=== PATIENT | female | born 1970 | race Caucasian/White ===

== ENCOUNTER 2016-08-17 07:34 | Emergency (ER) | payer OTHER ==
--- NOTE | ~2016-08-17 | EKG ---
PATIENT: ELLIE TSAI UNIT #: [id number] Ventricular Rate: 102 BPM Atrial Rate: 102 BPM P-R Interval: 170 ms QRS Duration: 72 ms Q-T Interval: 334 ms QTC Calculation(Bezet): 435 ms P Gay: 74 degrees Calculated R Gay: 99 degrees Calculated T Gay: 59 degrees Diagnosis Line: Sinus tachycardia Diagnosis Line: Rightward axis Diagnosis Line: Borderline ECG Diagnosis Line: When compared with ECG of 22-MAY-2015 22:20, Diagnosis Line: Questionable change in initial forces of Anterior Diagnosis Line: leads Diagnosis Line: Confirmed by GEE BARCENAS MD ([id number]) on Diagnosis Line: 08/28/2016 7:13:32 AM INTERPRETING MD: GURWINDER
--- NOTE | ~2016-08-17 | CR72 ---
[facility] RADIOLOGY TEXT RESULTS PATIENT: ELLIE TSAI LOCATION: SED : 70 UNIT #: [id number] AGE: [address]: Cali Wright MD SEX: F ORDER DR: [id number] [place] [id number] E MR#: [id number] Acc #: [id number] NAME: ELLIE TSAI : 1970 SEX: F STUDY DATE/TIME: 08/17/2016 8:34 UNIT: SED ROOM: STUDY DESCRIPTION: CR Chest Single View Portable Attending Physician: Cali Wright M.D. Ordering Physician: Cali Wright M.D. Primary Care Physician: Pierre Purvis M.D. MEDICAL IMAGING REPORT This report is preliminary unless electronic signature is present. EXAM Single view of the chest dated 08/17/2016 at 0834 hours. COMPARISON Single view chest dated 06/12/[address] chest without contrast dated 06/13/2016. HISTORY Chest tightness, wheezing, and congestion for the last 2 days. History of VT, coronary artery disease, COPD. FINDINGS Single view of the chest was obtained. A single AP portable view of the chest shows both lungs to be clear. The heart is normal in size. The mediastinal contour is normal. No significant bone abnormalities are seen. IMPRESSION Normal portable chest. Dictated by... Marialuisa Phelps M.D. THIS IS AN ELECTRONICALLY VERIFIED REPORT Marialuisa Phelps M.D. at 08/18/2016 1:52 PM CPR/tmw TD: 08/17/2016 09:24 JOB #: [id number] [facility] RADIOLOGY TEXT RESULTS PATIENT: ELLIE TSAI LOCATION: SED : 70 UNIT #: [id number] AGE: [address]: Cali Wright MD SEX: F ORDER DR: MEDICAL IMAGING REPORT Page 1 of 1
[~2016-08-17 07:34] MED LIST: ALBUTEROL0.83 MG/ML IH; ALBUTEROL17 GM INH; ALPRAZOLAM PO; AMBIEN10 MG PO; ASPIRIN ENTERI325 M1 PO; ASPIRIN PO; ASPIRIN325 M1; ASPIRIN81 MG PO; BACTRIM DS TABL1 TA1; BACTROBAN22 GM TP; BAYER CHEWABLE81 MG PO; BENZONATATE PO; BLOOD PRESSURE PO; BUTALB-APAP-CA1 EAC1 PO; BUTRANS1 EAC1; CARDIZEM CD120 MG PO; CARVEDILOL6.25 MG; CELEXA PO; CLEOCIN150 M1 PO; COREG; COREG PO; CRESTOR10 MG PO; DUONEB; EFFIENT10 MG PO; FERROUS GLUCON324 MG PO; FLEXERIL PO; FLEXERIL10 M1 PO; FLEXERIL10 MG PO; GABAPENTIN300 M2 PO; IBUPROFEN800 MG PO; IMDUR; IMDUR30 MG PO; ISOSORBIDE DINI30 MG; ISOSORBIDE DINI30 MG PO; LEVAQUIN PO; LEXAPRO PO; LIPITOR; LIPITOR80 MG PO; LISINOPRIL PO; LISINOPRIL20 MG; LISINOPRIL5 MG; LOPRESSOR PO; LORAZEPAM0.5 MG PO; LORTAB 10-5001 EACH PO; LORTAB 7.51 TAB 7.5/; LORTAB 7.51 TAB 7.5/ DOB; LORTAB 7.51 TAB 7.5/ PO; MED FOR NEUROPATHY; MEDROL DOSEPAK4 MG DOB; METOPROLOL SUCC25 MG PO; MUCINEX DM ER1 EACH PO; NAPROXEN PO; NAPROXEN375 MG PO; NEXIUM PO; NIASPAN1000 MG PO; NICOTINE1 EAC1; NITRODISC0.4 MG; NITROGLYCERIN0.4 MG SL; NITROGLYGERIN0.4 MG; NITROGYLCERIN SUBLINGUAL; NORCO 10-325 TA1 TAB PO; NORCO 10/3251 TAB PO; NORCO 7.5-3251 EACH PO; OMEPRAZOLE20 M2 PO; OXYCODONE HCL20 M1 PO; OXYGEN; PANTOPRAZOLE SO40 MG PO; PEPCID40 MG PO; PHENERGAN/CODEIN5 ML PO; PHENERGAN25 M1 PO; PLAVIX PO; PREDNISONE PO; PREDNISONE10 MG; PROTONIX PO; RANEXA500 MG PO; ROBITUSSIN100 MG/51 PO; RONDEC-DM SYRU120 ML PO; SIMVASTATIN80 MG PO; SPIRIVA18 MCG INH; SYMBICORT; SYMBICORT INH; TUDORZA PRESS400 MCG IH; ULTRAM PO; VICODIN PO; VITAMIN B; VITAMIN B-121000 MC1 PO; VITAMIN D31000 UNIT; XANAX0.5 MG PO; XANAX1 MG; XANAX1 MG PO; ZITHROMAX PO; ZITHROMAX1 G/PKT PO; ZOCOR PO; ZOFRAN ODT4 MG PO; ZOFRAN PO; [UNRECOGNIZED DRUG - OTHER]
[2016-08-17 08:08] LABS: BASOPHIL# 0.1 X10e3 (0-0.3); EOSINOPHIL# 0.2 X10e3 (0-0.7); EOSINOPHIL% 1.3 % (0.0-7.0); HEMATOCRIT 49.5 % (35.0-45.0); HEMOGLOBIN 16.7 gm/dL (12.0-16.0); LYMPHOCYTE# 2.3 X10e3 (1.0-3.5); LYMPHOCYTE% 16.3 % (17.0-45.0); MEAN CORPUSCULAR HEMOGLOBIN 31.8 PG (28-34); MEAN CORPUSCULAR HGB CONC 33.8 g/dL (30-36); MEAN PLATELET VOLUME 8.9 FL (6.5-11.5); MONOCYTE# 1.1 X10e3 (0-1.0); MONOCYTE% 7.9 % (3.0-12.0); NEUTROPHIL# 10.3 X10e3 (1.5-7.1); NEUTROPHIL% 73.5 % (40-75); PLATELET COUNT 207 X10e3 (140-420); RED BLOOD COUNT 5.27 X10e (3.90-5.30); RED CELL DISTRIBUTION WIDTH 13.6 % (11.0-15.5)
[2016-08-17 08:22] LABS: POC - CKMB 1.3 ng/mL (0.0-7.9); POC - MYOGLOBIN 63.2 ng/mL (0.0-169.0); POC - TROPONIN <0.05 ng/mL (<=0.05)
[2016-08-17 08:22] LABS: DIFF IND NO
[2016-08-17 08:35] LABS: ALBUMIN SERUM 4.3 g/dL (3.5-5.0); BILIRUBIN,TOTAL 0.7 mg/dL (0.2-2.0); BUN/CREATININE RATIO 16.66; CALCIUM SERUM 9.1 mg/dL (8.4-10.2); CREATININE SERUM 0.6 mg/dL (0.6-1.4); GLOM FILT RATE Estimated 109.3 mL/min (>60); POTASSIUM 3.8 mmol/L (3.5-5.1); PROTEIN TOTAL SERUM 7.3 g/dL (6.0-8.3)
[2016-08-17 10:01] LABS: POC - MYOGLOBIN 41.3 ng/mL (0.0-169.0)
[2016-08-17 10:02] LABS: POC - TROPONIN <0.05 ng/mL (<=0.05)
== END 2016-08-17 10:22 | disposition home or self-care (01) ==
LOC: SED 07:34
PROVIDERS: Emergency Medicine
DX: R07.89 Other chest pain (principal); J20.9 Acute bronchitis, unspecified; J44.0 Chronic obstructive pulmonary disease with (acute) lower respiratory infection; E78.5 Hyperlipidemia, unspecified; F17.200 Nicotine dependence, unspecified, uncomplicated; Z79.899 Other long term (current) drug therapy
CPT/HCPCS: 71010; 80053; 82553; 83874; 84484; 85025; 93005; 94640; 96361; 96374; 99284; J1100